=== PATIENT | male | born 1955 | race Caucasian/White ===

== ENCOUNTER 2024-09-22 02:19 | Day surgery (SDC) | payer MEDICARE, SELFPAY ==
--- NOTE | 2024-09-12 08:07 | P.HP_ITS ---
History of Present Illness History of Present Illness Consent: Risks, benefits, and alternatives have been discussed and questions answered. Patient agrees to proceed with procedure. Chief complaint: elevated psa Narrative: Arnaldo Metcalf is a 69 year old male This man has a chronic PSA elevation and has had no prior negative biopsies. He has not priviously undergone biopsy due to transient PSA elevation and he won't agree to biopsy. His urological histroy is not significant for recent urinary tract infection, recent prostatitis, hematuria or hematospermia. This man has never been on a 5-alpha reductase inhibitor. He has no family history of prostate cancer in his father or brothers. Note for Abnormal PSA: . 07/2024: ?PSA: 10.56 08/08/24: ?mpMRI Prostate: PI-RADS-5: 1.8cm right post.-lat. PZ @mid-gland ?Volume: 44gm Review of Systems Review of Systems: All systems reviewed & are unremarkable except as noted in HPI and below PMFSH Past Medical History Medical History (Updated 09/12/24 @ 08:07 by Eduardo Nelson MD) Asthma Allergies Exam Const: General: no acute distress Resp: Effort & Inspection: normal respiratory effort GI: Inspection: non-distended GI Palp: No abdominal tenderness and No Guarding due to palpation present (GI) Auscultation: normal bowel sounds Assessment and Plan Assessment and plan (1) Elevated PSA: Code(s): R97.20 - Elevated prostate specific antigen [PSA] Status: Acute Assessment and Plan: * MRI fusion biopsy prostate
[2024-09-15 10:55] VITALS: BMI 28.5
--- NOTE | 2024-09-15 11:15 | PC.NURSE ---
Report to the Outpatient Waiting Room, entrance under the green pavilion located off [facility], at time ___11:00AM__ on date __09/22/24___. Planned Procedure Time: ___1:00PM___.? Time changes happen often and if your time is changed the preop area will call you the afternoon before. - You and your visitor will be asked to self-screen and do not enter if you have any COVID symptoms. Please call surgeon if you need to reschedule. - A mask is optional within the hospital at this time. Patients may have clear liquids (water, carbonated beverages, clear teas, apple juice) until 3 hours prior to surgery (10:00AM) with a maximum of 20 ounces. - No food from midnight until time of surgery and no smoking, or chewing tobacco (or any form of nicotine). No chewing gum, candy or mints. Take only the following medications with a SIP of water on the morning of surgery: ____NONE DO NOT STOP ANY OF YOUR OTHER PRESCRIPTION MEDICATIONS PRIOR TO SURGERY EXCEPT THE FOLLOWING Hold all vitamins and supplements for 3 days per anesthesiologist. Medications to discontinue per physician NONE Date to take last dose Please no make-up, nail amharic, hairspray, perfume, deodorant, or body powder the day of surgery.? No jewelry (including any body piercings) or valuables the day of surgery, leave them at home.? Please take a shower or bath the night before, or the morning of, surgery with an antibacterial soap.? Wear comfortable, loose fitting clothing.? - Jewelry must be removed prior to entering the operating room.? Rings and piercings that are not removed may be cut off. - The hospital will not accept responsibility for valuables.? - Please leave all valuables, including medications, at home the day of surgery. If you are going home after surgery, a licensed jinriksha driver must drive you home.? - NO public transportation without another adult if you receive anesthesia. - We recommend that an adult stay with you for 24 hours following discharge. - We also recommend that you do not drive, make important decision, drink alcoholic beverages, or take any drugs that were not prescribed by your health care provider for at least 24 hours after your discharge time. Follow any additional instructions given to you from your surgeon. Telephone instructions given to ____PATIENT and asked if any additional questions and then verbalized understanding. Patient advised to call surgeon office or pre surgery nurse liaison [phone] if any additional questions.
--- OUTSIDE RECORDS SUMMARY | 2024-09-22 02:22 | XMS_ITS | Encounter Summary ---
Author Organization [facility] - [facility] Address [facility] [place] [address] Care Team Providers Care Medical Staff Assistant Name Role Phone Bonnie Darby DO Primary Care Provider [phone] Kenny Mcclain MD Unavailable Tk Lacey MD Unavailable [phone] Encounter Details Date Type Department Care Team (Late st Contact Info) Description 03/21/2024 [email or web address] Message Enc [facility] Medical Group Multispecialty Care - [place] [address] [place], [place] [id number] Bonnie Darby DO [address] [facility] [address] [place], [place] [id number] Sleep study Social History Tobacco Use Types Packs/Day Years Used Date Smoking Tobacco: Every Day Cigarettes 1 53.6 Started: 02/09/1971 Passive Smoke Exposure: Past Smokeless Tobacco: Never Comments:Quit for short umer ods of time in the past. 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 [facility] [address] [place] [address] Gloria Green, PT [address] [place] [address] 09/29/2024 9:15 AM CDT Office Visit [facility] [address] [facility] [address] [place] [address] Kenny Mcclain MD Three [facility]. [address] [place] [address] 10/04/2024 1:30 PM CDT Office Visit [facility] Physical Therapy [address] [address] Gloria Green, [place] [address] 11/04/2024 8:20 AM CDT Office Visit [facility] Medical [facility] Multispecialty Care - [facility] [address] [facility] [place] [id number] Tk Lacey MD [address] [facility] [address] [place] [address] 11/15/2024 1:00 PM CDT Hospital Encounter [facility] [address] [place] [address] Enrique Neumann MD [facility] [facility] [place], [place] [address] 11/15/2024 1:00 PM CDT - 11/15/2024 1:43 PM CDT Surgery [facility] [address] [place] [address] Enrique Neumann MD [address] [facility] [place], [place] [id number] COLONOSCOPY DIAGNOSTIC WITH/WITHOUT SPECIMEN BRUSH/WASH 11/17/2024 9:50 AM CDT Office Visit [facility] Family Medicine - [place] [address] [place] [address] Claudette Aguirre MD [address] [facility] [address] [place] [address] 08/25/2025 9:30 AM CDT Office Visit [facility] Multispecialty Care - [place] [address] [facility] [address] [place] [address] Bonnie Darby DO [address] [facility] [address] [place] [address] Scheduled Procedures Name Priority Associated Diagnoses Date/Ti me COLONOSCOPY DIAGNOSTIC WITH/WITHOUT SPECIMEN BRUSH/WASH Encounter for screening for malignant neoplasm of colon 11/15/2024 1:00 PM CDT documented as of this encounter Visit Diagnoses Not on filedocumented in this encounter Additional Health Concerns Assessment Noted Time PHQ-9 Depression Total Score: 1 03/07/19 25 10:36 AM LAMP SHADE MAKER documented as of this encounter Care Teams Medical Staff Assistant Relationship Specialty Start Date End Date Bonnie Darby DO [address] [facility] [address] [place] [address] PCP - General FAMILY PRACTICE 11/09/23 10/02/24 Kenny Mcclain MD [address] [place] [address] Referring Physician VASCULAR SURGERY 08/24/24 Tk Lacey MD [address] [address] Consulting Physician Internal Medicine Pulmonary Disease 08/24/24 documented as of this encounter
--- OUTSIDE RECORDS SUMMARY | 2024-09-22 02:22 | XMS_ITS | Encounter Summary ---
Author Organization [facility] Address [facility] [place] [address] Care Team Providers Care Head Cashier Name Role Phone Bonnie Darby DO Primary Care Provider [phone] Kenny Mcclain MD Unavailable Tk Lacey MD Unavailable [phone] Encounter Details Date Type Department Care Team (Late st Contact Info) Description 12/10/2023 GetSocial Message Enc [facility] Medical Group Multispecialty Care [facility] [address] 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 [place] [address] [place] [address] 09/29/2024 9:15 AM CDT Office Visit [facility] [place] [address] Kenny Mcclain MD [address] [facility]. [address] [place] [address] 10/04/2024 1:30 PM CDT Office Visit [facility] Physical Therapy [address] [address] Gloria Green, [place] [address] 11/04/2024 8:20 AM CDT Office Visit [facility] Medical Group Multispecialty Care - [facility] [address] [facility] [place] [id number] Tk Lacey MD [address] [facility] [address] [place] [address] 11/15/2024 1:00 PM CDT Hospital Encounter [facility] [address] [place] [address] Enrique Neumann MD [address] [place] [address], [address] [place] [address] 11/15/2024 1:00 PM CDT - 11/15/2024 1:43 PM CDT Surgery [facility] [address] [place] [address] Enrique Neumann MD [address] [facility], [address] [place] [address] COLONOSCOPY DIAGNOSTIC WITH/WITHOUT SPECIMEN BRUSH/WASH 11/17/2024 9:50 AM CDT Office Visit [facility] Medical Group Family Medicine - [place] [address] [facility] [address] [place] [address] Claudette Aguirre MD [address] [facility] [address] [place] [address] 08/25/2025 9:30 AM CDT Office Visit [facility] Multispecialty Care - [place] [address] [facility] [address] [place] [address] Bonnie Darby DO [address] [facility] [address] [place] [address] Scheduled Procedures Name Priority Associated Diagnoses Date/Ti me COLONOSCOPY DIAGNOSTIC WITH/WITHOUT SPECIMEN BRUSH/WASH Encounter for screening for malignant neoplasm of colon 11/15/2024 1:00 PM CDT documented as of this encounter Visit Diagnoses Not on filedocumented in this encounter Care Teams Head Cashier Relationship Specialty Start Date End Date Bonnie Darby DO [address] [facility] [address] [place] [address] PCP - General FAMILY PRACTICE 11/09/23 10/02/24 Kenny Mcclain MD [address] [place], [place] [id number] Referring Physician VASCULAR SURGERY 08/24/24 [place] [address] [place] [address] [address] [place] [address] Consulting Physician Internal Medicine Pulmonary Disease 08/24/24 documented as of this encounter
--- OUTSIDE RECORDS SUMMARY | 2024-09-22 02:22 | XMS_ITS | Clinical Summary ---
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 elevated PSA however elevated PSA likely secondary to chronic prostatitis which was treated. Assessment & Plan (12/29/2023 1:52 PM SUPERVISOR ELECTRONIC TESTING): Continue remaining of ciprofloxacin prescription. Follow-up as scheduled with urology. Assessment & Plan (12/15/2023 11:08 AM SUPERVISOR ELECTRONIC TESTING): Patient counseled to finish 28-day course of ciprofloxacin. Communicate with patient that I suspect chronic prostatitis is why his PSA is elevated however I would still like him to be evaluated by urology as PSA is elevated above 10. Assessment & Plan (12/01/2023 10:19 AM CDT): Patient recent and prescription for ciprofloxacin 500 mg oral twice daily for 28 days. Instructed to start taking. He is counseled on potential side effects and is agreeable to treatment. He is to call if he has any concerns. Intermittent asthma without complication, unspecified asthma severity (HHS/HCC) 11/10/2023 Encounters Date Type Department Care Team Description 09/20/2024 1:30 PM CDT Office Visit [facility] Physical [facility] [address] [facility] [address] [place] [address] Bonnie Darby, Cassy Clark, BOX BLANK MACHINE OPERATOR Cervical Pain 09/20/2024 Travel 09/13/2024 1:30 PM CDT Office Visit [facility] Physical [facility] [address] [facility] [address] [place] [address] Bonnie Darby, Cassy Clark, BOX BLANK MACHINE OPERATOR Cervical Pain 09/13/2024 Travel 09/12/2024 Prep for Procedure [facility] General Surgery [facility] [address] [facility], [address] [place] [phone] Enrique Neumann MD 09/08/2024 2:15 PM CDT Office Visit [address], [address] [place] [address] Enrique Neumann MD Consult For Colonoscopy (First one) 09/08/2024 9:00 AM CDT Allied Health/Nurse Visit [place] [address] [address] [address] [place] [address] Bonnie Darby DO Allied Health Visit (Pt here for BP check. ) 09/08/2024 Travel 09/06/2024 3:15 PM CDT Office Visit [facility] Physical [place] [id number] [address] Bonnie Darby, Gloria Caba, PT Cervical Pain 09/06/2024 Travel 08/25/2024 9:20 AM CDT Office [facility] [place] [address] [facility] [address] [place] [address] Bonnie Darby DO Hypertension (3 mo follow up /No questions or concerns today. /) 08/25/2024 Travel 08/24/2024 8:30 AM CDT [facility] [address] [place] [address] Bonnie Darby, DO Medicare Wellness (Patient presents today for their Medicare Annual Wellness Visit.) 08/24/2024 Travel 08/08/2024 MyChart Message [facility] [address] [place] [phone] Tk Lacey MD cpap setting at 13 07/22/2024 Scan [facility] Scanned, [facility] 07/21/2024 Scan [facility] Scanned, [facility] 07/20/2024 Scan [facility] Scanned, [facility] 07/20/2024 Telephone [facility] - [address] [place] [phone] Tk Lacey MD Results 07/20/2024 Results Follow-Up [facility] - [address] [place] [phone] Tk Lacey MD PSG with CPAP/BIPAP (32740) 07/07/2024 7:52 PM CDT - 07/07/2024 11:59 PM CDT Hospital Encounter [facility] [address] [place] [address] Tk Lacey MD Obstructive Sleep Apnea Discharge Disposition: Home or Self Care (Routine Discharge) 07/07/2024 Travel from Last 3 Months Immunizations Immunization Administration Dates Next Due Fluzone High Dose (IIV, trivalent, 0.5mL) 2023 Pneumococcal (Prevnar 20) 12/01/2023 Shingrix 03/20/2024,12/29/2023 Tdap (Adacel) 11/17/2023 Family History Medical History Relation Comments Lymphoma Brother 1 Stroke Brother 2 Hiatal hernia Brother 3 Aneurysm Father in 1996 from aortic aneurysm Mitral Valve Issue Father Emphysema Maternal Grandfather No Known Problems Maternal Grandmother Cancer Maternal Uncle Cholecystectomy Mother Diabetes Mother No Known Problems Paternal Grandfather No Known Problems Paternal Grandmother Sleep Apnea Sister Patient reports sister used CPAP for 2 years Relation Status Comments Brother 1 Brother 2 Alive Brother 3 Alive Father Maternal Grandfather Maternal Grandmother Maternal Uncle Mother Paternal Grandfather Paternal Grandmother Sister Social History Tobacco Use Types Packs/Day Years Used Date Smoking Tobacco: Every Day Cigarettes 1 53.6 Started: 02/09/1971 Passive Smoke Exposure: Current Smokeless Tobacco: Never Tobacco Cessation:Ready to Q uit: Yes; Counseling Given: Yes Comments:Currently 0.5 PPD Alcohol Use Standard Drinks/Week Comments Yes 6.7 (1 standard drin k = 0.6 oz pure alcohol) Drinks on vacation or playing golf AUDIT-C Answer Date Recorded Q1: How often do you have a drink containing alc ohol? 2-4 times a month 08/24/2024 Q2: How many drinks containi ng alcohol do you have on a typical day when you are drinking? 5 or 6 08/24/2024 Q3: How often do you have si x or more drinks on one occasion? Less than monthly 08/24/2024 PHQ-2 Answer Date Recorded Patient Health Questionnaire-2 Score 0 08/24/2024 Sex and Gender Information Value Date Recorded Sex Assigned at Male 04/04/2024 8:19 AM SUPERVISOR ELECTRONIC TESTING Legal Sex Male 2:39 PM CDT Gender Identity Male 04/04/2024 8:19 AM SUPERVISOR ELECTRONIC TESTING Sexual Orientation Not on file Last Filed Vital Signs Vital Sign Reading Time Taken Comments Blood Pressure 137/87 09/08/2024 2:25 PM CDT Pulse 71 09/08/2024 2:25 PM CDT Temperature 36.6 C (97.8 F) 09/08/2024 2:25 PM CDT Respiratory Rate 20 09/08/2024 2:25 PM CDT Oxygen Saturation 96% 09/08/2024 2:25 PM CDT Inhaled Oxygen Concentration - - Weight 93.6 kg (206 lb 6.4 oz) 09/08/2024 2:25 P M CDT Height 180.3 cm (5' 11) 09/08/2024 2:25 PM CDT Body Mass Index 28.79 09/08/2024 2:25 PM CDT Plan of Treatment Upcoming Encounters Date Type Department Care Team (Latest Contact Info) Description 09/27/2024 2:30 PM CDT Office Visit [facility] Physical Therapy [facility] [address] [address] Gloria Green, PT [facility] [place] [address] 09/29/2024 9:15 AM CDT [facility] [address] [place] [address] Kenny Mcclain MD [facility]. [address] [place] [address] 10/04/2024 1:30 PM CDT Office Visit [facility] Physical Therapy [facility] [address] [address] Gloria Green, PT [facility] [place] [address] 11/04/2024 8:20 AM CDT Office Visit [facility] Mult[facility]pecialty Care - [facility] [address] [place] [phone] Tk Lacey MD [address] [facility] [address] [place] [address] 11/15/2024 1:00 PM CDT Hospital Encounter [facility] [address] [place] [address] Enrique Neumann MD [address] [facility], [address] [place] [address] 11/15/2024 1:00 PM CDT - 11/15/2024 1:43 PM CDT Surgery [facility] [address] [place] [address] Enrique Neumann MD [address] [facility], [address] [place], [place] [address] COLONOSCOPY DIAGNOSTIC WITH/WITHOUT SPECIMEN BRUSH/WASH 11/17/2024 9:50 AM CDT Office Visit [facility] [place] [address] [place] [address] Claudette Aguirre MD [address] [place] [address] 08/25/2025 9:30 AM CDT Office Visit [facility] [place] [address] [place] [address] Bonnie Darby, [address] [place] [address] Scheduled Procedures Name Priority Associated Diagnoses Date/Ti me COLONOSCOPY DIAGNOSTIC WITH/WITHOUT SPECIMEN BRUSH/WASH Encounter for screening for malignant neoplasm of colon 11/15/2024 1:00 PM CDT Health Maintenance Due Date Last Done Comments Colorectal Cancer Screening FIT/FOBT (1 Year) 10/23/2024 10/24/2023 Lung Cancer Screening 12/07/2024 12/08/2023 COVID-19 Vaccine (2023-2 5 season) 2025 06/15/2021, 09/22/2020, 09/01/2020 Postponed from 10/11/2023 (Patient Refused) RSV Immunization or 60+ Years (1 - Risk 60-74 years 1-dose series) 03/21/2025 Postponed from 09/2015 (Going to Outside Clinic) Annual Medicare Wellness Visit 08/25/2025 08/24/2024 DTaP, Tdap and Td Vaccines ( 2 - Td or Tdap) 11/16/2033 11/17/2023 Hepatitis C Completed 11/13/2023 Pneumococcal Vaccine: 50+ Years Completed 12/01/2023 AAA SCREENING Completed 12/08/2023 Zoster Vaccines Completed 03/20/2024, 12/29/2023 PHQ-2 (Physician [place]) Completed 08/24/2024 Meningococcal B Vaccine Aged Out No l onger eligible based on patient's age to complete this topic Meningococcal Vaccine Aged Out No gina froy eligible based on patient's age to complete this topic RSV Immunizations Under 20 Months Aged Out No longer eligible b ased on patient's age to complete this topic Goals Goal Patient Goal Type Associated Problems Recent Progress Patient-Stated? Author Autogenerat ed Goal Care Plan Autogenerated Problem No Haritha Barker, photostatic copy maker Procedure Name Priority Date/Time Associated Diagnosis Comments POLYSOMNOGRAPHY 4 OR MORE PARAMETERS WITH CPAP Routine 07/07/2024 8:15 PM CDT Obstructive sleep apnea (adult) (pediatric) USV AAA SCREENING Routine 12/08/2023 8:5 8 AM CDT Nicotine dependence, cigarettes, with other nicotine-induced disorders Screening for AAA (abdominal aortic aneurysm) CT LUNG SCREENING Routine 12/08/2023 7:3 4 AM CDT Nicotine dependence, cigarettes, with other nicotine-induced disorders Screening for lung cancer HEPATITIS C ANTIBODY Routine 11/13/2023 11:03 AM CDT Encounter for hepatitis C screening test for low risk patient FECAL BLOOD OCCULT (SCAN ORDER) Routine 10/24/2023 from Last 3 Months or Most Recently Relevant to Health Maintenance Results * PSG with CPAP/BIPAP (28489) (07/07/2024 8:15 PM CDT) Narrative [facility] - 07/07/2024 8:15 PM CDT Bird Amor MD 07/20/2024 2:37 PM [place], [place] CPAP/BILEVEL TITRATION STUDY INTERPRETATION PATIENT NAME: Ashvin Sam DATE OF : 1955 DATE OF SERVICE: 07/07/2024 PATIENT TYPE: CLI Ordering Phy Exam Description Tk Lacey M.D. PSG 4+PARAMETERS W/CPAP ATTENDING PHYSICIAN: Bird Amor M.D. REFERRING PHYSICIAN: Tk Lacey M.D. GENERAL INFORMATION Total Sleep Time: 194.5 minutes Sleep Efficiency Index: 42.1% Sleep Latency: 45.8 minutes REM Latency: 257.0 minutes Post Respiratory Disturbance Index: 9.7 per hour on CPAP of 13 cm h2O Post Apnea-Hypopnea Index: 0.0 per hour on CPAP of 13 cm h2O Procedure: The overnight polysomnogram was an attended study using a multiple channel system including simultaneous monitoring and recording of electroencephalography (EEG), right and left electrooculography (EOC), submental electromyography (EOG), submental electromyography (EMG), EKG, oral/nasal airflow, snoring, respiratory effort, oxygen saturations, right and left anterior tibialis electromyography, and body position. Sleep Architecture: The patient underwent CPAP titration and slept for a total of 194.5 minutes during 461.9 minutes of recording time. Latency to persistent sleep was 45.8 minutes with sleep efficiency of 42.1% and a REM latency of 257.0 minutes. Patient spent 24.2% (47.0 minutes) in stage N1, 54.5% (106.0 minutes) in stage N2, 6.7% (13.0 minutes) in Stage N3, 14.7% (28.5 minutes) in REM. The patient slept 0.3% of the time in supine position, 0.0% of the time in prone position, 37.8% of the time in left-sided position, and 62.0% of the time in right-sided position. There were 180 arousals, of which 128 were associated with respiratory events and 35 were spontaneous. Arousal index was 55.5 per hour. Limb Activity Summary: The patient demonstrated a total of 94 leg movements during the night, of which 94 had the appearance of periodic limb movements. There were a total of 17 arousals associated with leg movements for an arousal index with leg movements of 5.2 per hour. The periodic limb movement index was 29.0 per hour. Cardiac Events Summary: The average heart rate was 71.3 beats per minute. PVCs were noted during this study. Respiratory Events Summary: There were a total of 20 apneas and hypopneas, of which 14 were apneas. Of those apneas, 6 were Obstructive, 5 were Central and 3 were Mixed. There were an additional 114 respiratory event-related arousals. Oxygen Saturation Summary: Patient's average saturation was 95.2% during REM and 94.4% during NREM. The patient's lowest saturation was 93.0% during REM and 89.0% during NREM. Saturation was 90% or higher for 99.9% of the total sleep time. Saturation was less than 88% for 0.0% of the total sleep time or 0.0 minutes. CPAP/BiLevel Therapy Summary: The patient underwent CPAP titration starting at 4 cm H2O, up to a maximum of 13 cm H2O. The patient slept for 31.0 minutes while on the optimal pressure of 13 cm H2O with an AHI of 0.0 per hour, arousal index of 42.6 per hour and minimum oxygen saturation of 93.0%. Assessment/Plan: This patient was fully titrated during this study. There was decreased sleep time during this evaluation. It is recommended that this patient initiate CPAP therapy at home set at 13.0 cm h2O with heated humidity. A one month follow up should be scheduled with the ordering physician to assess the benefit and tolerance of this therapy. If respiratory events persist, further evaluation and possible pressure adjustment may be warranted as clinically indicated. The patient used a VitaSensis Simplus full-face mask, size medium, during this study. This patient had an elevated periodic limb movement index which could be a potential source of sleep disruption. PVCs were noted during this study. Given that the patient's past medical history was not available during interpretation of this study, clinical correlation of this issue may be indicated based upon this patient's underlying medical conditions. I recommend consistent correction of sleep-disordered breathing and if signs of an elevated periodic limb movement index persist, treatment may be required as clinically indicated. This patient should maintain good sleep hygiene techniques, maintain a consistent sleep/wake schedule with adequate hours of sleep, and avoid hazardous activities when sleepy. The patient should be cautioned about factors that may potentially exacerbate snoring and sleep-related problems, such as OPENER depressants, especially at bedtime. This document was electronically signed by: Bird Amor M.D. on 07/18/2024 at 7:57 AM. Tk Lacey MD SLEEP CENTER ORDERABLES Final Result [facility] [address] [place] [address], * USV AAA SCREENING (12/08/2023 8:58 AM CDT) Anatomical Region Laterality Modality NA Vascular Ultraso und 12/08/2023 7:34 AM CDT Narrative 12/08/2023 6:08 PM CDT [facility] ILIAC [facility]UPLEX [facility] Pat.Name: JUNIORALFREDOASHVIN Pat.ID: [id number] .Date: 12/08/2023 Exam Time: 7:34:00 AM Study Type:KEVIN VS Aorta IVC Iliac Duplex Uni Age: 13 1955,68Y Sex: M Sonogrphr: Tawny Mustafa RVT Pat. Stat.:Outpatient History / Clinical:AAA screening , CLAUDICATION R >L PMH, SMOKER, HTN, HLD, CKD, NO PRIOR Procedures: Ferris scale, Color Doppler imaging, Doppler Spectral Analysis Race: W ++++++++++++++++++++++++++++++++++++ SUMMARY: ++++++++++++++++++++++++++++++++++++ AAA SCREENING EXAM: Maximum aorta diameter is 2.4 cm. Mild plaque is noted. The common iliacs are within normal limits. CONCLUSION: No abdominal aorta aneurysm present. Recommend follow up prn unless clinically indicated. ++++++++++++++++++++++++++++++++++++ MEASUREMENTS: ++++++++++++++++++++++++++++++++++++ DOPPLER Supra AO Supra AO Dim 1 2.4 cm Supra AO Dim 2 2 cm Dist AO Dist AO Dim 1 1.52 cm Dist AO Dim 2 1.58 cm Rt Prox Common Iliac Common Iliac Di 1.1 cm Common Iliac Di 0.98 cm Lt Prox Common Iliac Common Iliac Di 1.1 cm Common Iliac Di 1.1 cm <Electronic Signature> 12/08/2023 06:08 PM Kenny Mcclain M.D. Procedure Note Kenny Mcclain MD - 12/08/2023 [facility] ILIAC DUPLEX [facility] Pat.Name: ASHVIN SAM Pat.ID: [id number] .Date: 12/08/2023 Exam Time: 7:34:00 AM Study Type:KEVIN VS Aorta IVC Iliac Duplex Uni Age: 13 1955,68Y Sex: M Sonogrphr: Tawny Mustafa RVT Pat. Stat.:Outpatient History / Clinical:AAA screening , CLAUDICATION R >L PMH, SMOKER, HTN, HLD, CKD, NO PRIOR Procedures: Ferris scale, Color Doppler imaging, Doppler Spectral Analysis Race: W ++++++++++++++++++++++++++++++++++++ SUMMARY: ++++++++++++++++++++++++++++++++++++ AAA SCREENING EXAM: Maximum aorta diameter is 2.4 cm. Mild plaque is noted. The common iliacs are within normal limits. CONCLUSION: No abdominal aorta aneurysm present. Recommend follow up prn unless clinically indicated. ++++++++++++++++++++++++++++++++++++ MEASUREMENTS: ++++++++++++++++++++++++++++++++++++ DOPPLER Supra AO Supra AO Dim 1 2.4 cm Supra AO Dim 2 2 cm Dist AO Dist AO Dim 1 1.52 cm Dist AO Dim 2 1.58 cm Rt Prox Common Iliac Common Iliac Di 1.1 cm Common Iliac Di 0.98 cm Lt Prox Common Iliac Common Iliac Di 1.1 cm Common Iliac Di 1.1 cm <Electronic Signature> 12/08/2023 06:08 PM Kenny Mcclain M.D. us Bonnie Darby DO US [facility] Final Result * CT LUNG SCREENING (12/08/2023 7:34 AM CDT) Anatomical Region Laterality Modality Chest Computed Tomogra phy 12/08/2023 9:47 AM CDT Impressions 12/08/2023 9:50 AM CDT IMPRESSION: 1. LUNG-RADS category 2: Benign appearance or behavior-nodules with a very low likelihood of becoming a clinically active cancer due to size or lack of growth. 2. LUNG-RADS category S: Negative, no new/unknown potentially significant incidental findings requiring urgent additional evaluation. 3. Other incidental findings as above. RECOMMENDATIONS: Follow-up LDCT Chest in 12 months (on or around 12/07/2024). Ordered By: BONNIE DARBY Interpreted By: Michael Moncada, 12/08/2023 9:47 AM Narrative 12/08/2023 9:50 AM CDT [address] [address] EXAM: LUNG SCREENING LOW-DOSE CT THORAX WITHOUT CONTRAST DATE: 12/08/2023 7:25 AM HISTORY: Asymptomatic patient meeting NCCN high-risk criteria for lung screening. COMPARISON: None TECHNIQUE: Noncontrast, helical, low-dose CT (LDCT) chest per standard departmental protocol. A dose lowering technique was used for this procedure, which may include, but is not limited to, dose reduction technique, automated exposure control, iterative reconstruction, ALARA (As Low As Reasonably Achievable), or Image Gently techniques. FINDINGS: Lung Screening Specific (LUNG-RADS): 2.3 mm right upper lobe nodule axial image 41. Baseline. LungRADS 2. Potentially Significant Incidentals (LUNG-RADS category S): None. Pulmonary Incidentals: Calcified granulomas indicate healed granulomatous disease. Mild upper lobe predominant centrilobular emphysema. Other Incidentals: Atherosclerosis, coronary calcifications. Scattered degenerative disc disease and facet arthropathy. Procedure Note Michael Moncada MD - 12/08/2023 [facility] [address] [place], [place] [address] EXAM: LUNG SCREENING LOW-DOSE CT THORAX WITHOUT CONTRAST DATE: 12/08/2023 7:25 AM HISTORY: Asymptomatic patient meeting NCCN high-risk criteria for lungscreening. COMPARISON: None TECHNIQUE: Noncontrast, helical, low-dose CT (LDCT) chest per standarddepartmental protocol. A dose lowering technique was used for this procedure, which may include,but is not limited to, dose reduction technique, automated exposurecontrol, iterative reconstruction, ALARA (As Low As ReasonablyAchievable), or Image Gently techniques. FINDINGS: Lung Screening Specific (LUNG-RADS): 2.3 mm right upper lobe nodule axial image 41. Baseline. LungRADS 2. Potentially Significant Incidentals (LUNG-RADS category S): None. Pulmonary Incidentals: Calcified granulomas indicate healed granulomatousdisease. Mild upper lobe predominant centrilobular emphysema. Other Incidentals: Atherosclerosis, coronary calcifications. Scattereddegenerative disc disease and facet arthropathy. IMPRESSION: 1. LUNG-RADS category 2: Benign appearance or behavior-nodules with a verylow likelihood of becoming a clinically active cancer due to size or lackof growth. 2. LUNG-RADS category S: Negative, no new/unknown potentially significantincidental findings requiring urgent additional evaluation. 3. Other incidental findings as above. RECOMMENDATIONS: Follow-up LDCT Chest in 12 months (on or [id number]/2024). Ordered By: BONNIE DARBY Interpreted By: Michael Moncada, 12/08/2023 9:47 AM Bonnie Darby DO CT Final Result * HEPATITIS C ANTIBODY (11/13/2023 11:03 AM CDT) HEPATITIS C AB NON-REACTI VE NON-REACT MAURICE 11/13/2023 7:45 PM CDT [facility] Comment: ANTIBODIES TO HCV NOT DETECTED. DOES NOT EXCLUDE THE POSSIBILITY OF EXPOSURE TO HCV. 11/13/2023 11:0 3 AM CDT Bonnie Darby DO LABORATORY Final Result Performing Organization Address City/[facility]/ZIP Co de Phone Number [facility] [address] [place] [address], [place] [phone] * FECAL BLOOD OCCULT (10/24/2023) Pathologist [facility] FECAL OCCULT BLOOD NEGATIVE [facility] 10/24/2023 us Doc [facility] Scanned SCANNING Final Resu lt Performing Organization Address [facility] Co de Phone Number [facility] from Last 3 Months or Most Recently Relevant to Health Maintenance Additional Health Concerns Active Problems Noted Date Diagnosed Date Autogenerated Problem 09/12/[address] [place] [address] [place] [phone] [facility] Advance Directives Documents on File Type Date Recorded Patient Prize Coordinator Expl anation Advance Directives and Livin g Will 11/13/2023 2:46 PM POA Care Teams Spot Facer Relationship Specialty [place] [address] [place] [address] [address] [place] [address] PCP - General FAMILY PRACTICE 11/09/23 10/02/24 Kenny Mcclain MD [place] [place] [address] Referring Physician VASCULAR SURGERY 08/24/24 Tk Lacey MD [address] [facility] [address] [place] [address] Consulting Physician Internal Medicine Pulmonary Disease 08/24/24
--- NOTE | 2024-09-22 06:24 | WPDHPUPDATE1 ---
History and Physical Update Update Date/Time: 09/22/24 06:24 History and Physical has been reviewed, including an updated exam of the patient. There are NO changes in the patient's condition. Risks, benefits, and alternatives have been discussed and questions answered. Patient agrees to proceed with procedure.
--- NOTE | 2024-09-22 07:30 | WPDANESEPPF ---
Anes - Initial Pre Proc Eval Procedure: Operation Date: 09/22/24 13:00 Proposed Procedures p Transrectal Ultrasound Fusion Guided Prostate Biopsy - Eduardo Nelson MD Date/Time: 09/22/24 07:30 Surgeon: Eduardo Nelson MD Pre Op Diagnosis: elevated psa Patient Data Age: 69 Gender: M Height: 1.8 m Weight: 93 kg Allergies Allergy/AdvReac Type Severity Reaction Status Date / Time No Known Allergies Allergy Verified 09/22/24 11:41 Home Medications ?Medication ?Instructions ?Recorded ?Confirmed ?Type acetaminophen 500 mg tablet 1,000 mg PO Q6H PRN pain 09/15/24 09/15/24 History (Acetaminophen Pain Relief) ephedrine HCl 12.5 mg tablet 12.5 mg PO BID PRN shortness of 09/15/24 09/15/24 History (Primatene) breath or wheezing olmesartan 20 mg tablet 20 mg PO QAM 09/15/24 09/22/24 History rosuvastatin 40 mg tablet 40 mg PO DAILY 09/15/24 09/15/24 History Patient hx anesthesia problems: none Family hx anesthesia problems: none Results Review: All pre-operative results and documents have been reviewed as part of the pre-operative evaluation. [facility] Past Medical History Medical History (Updated 09/22/24 @ 07:30 by Rakesh Reddy DO) VANITA (obstructive sleep apnea) Hyperlipidemia Hypertension Asthma Allergies Social History Social History Smoking packs per day: 1 Smoking cigarettes per day: 20.0 Years smoked: 50 Smoking pack-years: 50.00 Smoking status: Current every day smoker Tobacco type: cigarettes Additional smoking assessment comments: SMOKING ~ 1/2 PACK/DAY CURRENTLY Alcohol intake: current Drinks per week: 6 Living arrangements: with roommate(s) Additional living arrangements comments: FRIEND Spiritual care concerns: No Anes - Eval Final PreProcedure Day of Procedure 09/22/24 07:30 Patient weight: overweight Heart: regular rate and rhythm Lungs: clear to auscultation Airway: Mallampati scale class II Neurological: alert and oriented Last oral intake: >/= 8 hours ASA classification: III Emergent: no Anesthetic plan: proceed Anesthesia type and monitoring: general LMA and standard monitoring Results Review: All pre-operative results and documents have been reviewed as part of the pre-operative evaluation. Informed Consent: The patient's anesthetic plan and its attendant risks and benefits were discussed with the patient/family/POA. Questions were solicited and answers provided to the satisfaction of the patient/family/POA.
[2024-09-22 11:30] VITALS: BP 133/78; PULSE 76; RESP 16; TEMP 36.6; O2SAT 98
[2024-09-22] MEDS: LACTATED RINGERS 1,000 ML 30 ML IV CONT (11:30)
[2024-09-22] MEDS: cefTRIAXone 1 GM in SODIUM CHLORIDE 0.9% IV 50 ML 100 ML IVPB (12:40)
--- NOTE | 2024-09-22 12:46 | S_PTH ---
PATIENT: Arnaldo Metcalf LOC: [facility] U#:[id number] AGE/SX: 69/M ROOM: RE09/22/[address]: Eduardo Nelson MD : 1955 BED: DIS: 09/22/2024 SPEC #: [id number] RECD: 09/22/24 14:20 STATUS: PAZ RE #: [id number] PRISCILA: 09/22/24 12:[address]: Eduardo Nelson DEPT: [facility] Surgical RECD BY: Sandra Trevino ENTERED: 09/22/24 14:21 SP TYPE: Surgical OTHR DR: Irene WaltonMD Tissues: A - Prostate Bx B - Prostate Bx C - Prostate Bx D - Prostate Bx E - Prostate Bx F - Prostate Bx G - Prostate Bx H - Prostate Bx I - Prostate Bx J - Prostate Bx K - Prostate Bx L - Prostate Bx M - Prostate Bx Procedures: Unstained Slides Hematoxylin and Eosin Stain Prostate Biopsy PIN 4 Prostate Triple Stain
[2024-09-22 13:00] VITALS: BP 110/67; PULSE 80; RESP 16; O2SAT 96
[2024-09-22 13:30] VITALS: BP 145/75; PULSE 56
--- NOTE | 2024-09-22 13:53 | W.PM.PROC2 ---
Procedure Note - Detailed Date of Procedure 09/22/24 Pre-op Diagnosis elevated psa Post-op Diagnosis Same Procedure Performed Uronav prostate bx. Surgeon Eduardo Nelson MD Anesthesia MAC Description of Procedure Patient is brought to the operative suite where he is positioned in the left lateral position. Systemic sedation is administered per the anesthesia department. Surgical time-out is undertaken and it's verified the patient has received preoperative antibiotics. Transrectal ultrasonography is undertaken with a standard transrectal probe. The [employer] system is used to superimpose his previously obtained mpMRI prostate images on the real-time transrectal ultrasond images. Prostate volume is calculated at 33cc. On the previous mpMRI there are one region of interest. Using the transrectal needle design for prostate biopsies 3 cores from each region of interest her obtain. We then proceeded with a standard 12 core prostate biopsy. Transrectal probe was removed and patient taken to recovery room having tolerated the procedure well. Blood loss was less than 10 cc.
[2024-09-22 13:55] VITALS: BP 160/77; PULSE 59
== END 2024-09-22 14:02 | disposition home or self-care (01) ==
PROVIDERS: PCP Family Medicine; Visit Provider Urology
PROC: (CPT 76872; principal; 2024-09-22 13:00)
DX: C61 Malignant neoplasm of prostate (principal); R97.20 Elevated prostate specific antigen [PSA]; J45.909 Unspecified asthma, uncomplicated; E78.5 Hyperlipidemia, unspecified; I10 Essential (primary) hypertension; G47.33 Obstructive sleep apnea (adult) (pediatric); F17.210 Nicotine dependence, cigarettes, uncomplicated
CPT/HCPCS: 76872; 55700; 88344; G0416; J0696; J3010; J7120

== ENCOUNTER 2024-10-18 07:32 | Outpatient (CLI) | payer MEDICARE, SELFPAY ==
--- NOTE | ~2024-10-18 | PE_ITS ---
EXAMINATION: PET_PETPSMAST_PT DATE: 10/18/2024 09:54 INDICATION: Prostate cancer TECHNIQUE: 5.619 mCi of Illucix Ga-68([id number]) was administered i.v. Low dose computed tomography (CT) images were acquired from the base of the brain to the base of the brain to the proximal thighs for attenuation correction and anatomic localization. Positron emission tomography (PET) images were acquired in the same distribution beginning 72 minutes after injection. Images including fused PET/CT images were reconstructed in axial, coronal, and sagittal planes. Automated exposure control technique was employed. The dose-length product was 1202.66mGy-cm. COMPARISON: None FINDINGS: Head/neck: Typical pattern of symmetric physiologic increased activity in the lacrimal, parotid and submandibular glands as well as along the mucosa of the nasal and oral cavities, pharynx and hypopharynx. No pathologically enlarged cervical lymphadenopathy or suspicious foci of increased uptake in the visualized head or neck. Chest: Dependent atelectasis in both lungs. Small calcified subpleural nodule in the right lower lobe consistent with old granulomatous disease. No other suspicious pulmonary nodules, pneumonia, pulmonary edema or pleural effusion. Heart size is normal. Atherosclerotic coronary artery calcific location. No pericardial effusion. Thoracic aorta is normal in caliber. No pathologically enlarged or PSMA avid thoracic lymphadenopathy. Abdomen/pelvis/proximal thighs: Physiologic renal accumulation and excretion of activity in the kidneys, bladder and along portions of ureters. 3-4 mm nonobstructing stone at the lower pole calyx of the left kidney. Prostatomegaly measuring 5.0 x 4.0 cm with approximately 1.5 cm focus of increased uptake at the right posterior aspect of the prostate with maximal SUV of 19.2. Normal degree and slightly heterogenous pattern of increased uptake throughout the liver and spleen without radiologic correlate or dominant PSMA avid lesion. There are a few low-attenuation hepatic cysts the largest measuring 1.3 cm. The gallbladder, pancreas and bilateral adrenal glands are normal. Moderate uptake scattered throughout the bowels with typical duodenal and proximal jejunal predominance and without radiologic correlate, also likely physiologic. A loop of nonobstructed small bowel extends into a large left inguinal hernia. Small fat-containing right inguinal hernia. Moderate diverticulosis along the descending and sigmoid colon without adjacent inflammatory stranding to suggest diverticulitis. No other abnormal foci of increased uptake or pathologically enlarged lymphadenopathy in the abdomen, pelvis or proximal thighs. Musculoskeletal: No suspicious lytic, blastic or abnormally PSMA avid bone lesions. IMPRESSION: 1. Possible 1.5 similar region of increased activity at the right posterior aspect of the enlarged prostate consistent with primary prostate cancer. No evident metastatic disease. 2. Loop of nonobstructed small bowel extends into a large left inguinal hernia. 3. Nonobstructing nephrolithiasis. Reviewed, dictated and finalized at location A. IMPRESSION: 1. Possible 1.5 similar region of increased activity at the right posterior asp ect of the enlarged prostate consistent with primary prostate cancer. No eviden t metastatic disease. 2. Loop of nonobstructed small bowel extends into a large left inguinal hernia. 3. Nonobstructing nephrolithiasis.
--- OUTSIDE RECORDS SUMMARY | 2024-10-18 07:56 | XMS_ITS | Encounter Summary ---
Author Organization [facility] - [facility] System Address [facility] [place] [address] Care Team Providers Care Web Database Developer Name Role Phone Bonnie Darby DO Primary Care Provider [phone] Claudette Aguirre MD Primary Care Provider + Kenny Mcclain MD Unavailable Tk Lacey MD Unavailable Encounter Details Date Type Department Care Team (Late st Contact Info) Description 12/10/2023 [place] [employer] Message Enc [facility] Medical Group Multispecialty Care - [address] [place], [place] [id number] [employer], [facility] Provider test results Social History Tobacco Use Types Packs/Day Years Used Date Smoking Tobacco: Every Day Cigarettes 1 53.7 Started: 02/09/1971 Passive Smoke Exposure: Past Smokeless [...] Sex Assigned at Male 04/04/2024 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 [place] [address] Bonnie Darby, [address] [place] [address] Cassy Zamudio, DOMINIQUE 11/04/2024 8:20 AM CDT Office Visit [facility] Multispecialty Care - [facility] [address] [facility] [place] [address] Tk Lacey MD [address] [facility] [address] [place] [address] 11/15/2024 12:00 PM CDT Hospital Encounter [facility] Surgery [address] [place] [address] Enrique Neumann MD [address] [place] [address], [address] [place], [place] [id number] 11/15/2024 12:00 PM CDT - 11/15/2024 12:43 PM CDT Surgery [address] [address] Enrique Neumann MD [address] [place] [address], [address] [place], [place] [address] COLONOSCOPY DIAGNOSTIC WITH/WITHOUT SPECIMEN BRUSH/WASH 11/17/2024 9:50 AM CDT Office Visit [facility] Medical Group Family Medicine - [place] [address] [place] [address] Claudette Aguirre MD [address] [place] [address] 06/29/2025 9:30 AM CDT Office Visit [facility] THREE [facility], [facility] [address] [place] [address] Kenny Mcclain MD Three [facility]. [facility] [address] [place] [address] 08/25/2025 9:30 AM CDT Office Visit [facility] Medical Group Multispecialty Care - [facility] [address] [facility] [address] [place] [address] Bonnie Darby DO [address] [facility] [address] [place] [address] Scheduled Procedures Name Priority Associated Diagnoses Date/Ti me COLONOSCOPY DIAGNOSTIC WITH/WITHOUT SPECIMEN BRUSH/WASH Encounter for screening for malignant neoplasm of colon 11/15/2024 12:00 PM CDT documented as of this encounter Visit Diagnoses Not on filedocumented in this encounter Care Teams Web Database Developer Relationship Specialty Start Date End Date Bonnie Darby DO [address] [facility] [address], [address] [place] [address] PCP - General FAMILY PRACTICE 11/09/23 10/02/24 Claudette Aguirre MD [address] [address] PCP - General FAMILY PRACTICE 10/03/24 Kenny Mcclain MD Three [facility]. [facility] [address] [place] [address] Referring Physician VASCULAR SURGERY 08/24/24 Tk Lacey MD [address] [facility] [address] [place] [address] Consulting Physician Internal Medicine Pulmonary Disease 08/24/24 documented as of this encounter
--- OUTSIDE RECORDS SUMMARY | 2024-10-18 07:56 | XMS_ITS | Encounter Summary ---
Author Organization [facility] Address [facility] [place] [address] Care Team Providers Care Assistant Media Planner Name Role Phone Bonnie Darby DO Primary Care Provider [phone] Claudette Aguirre MD Primary Care Provider + Kenny Mcclain MD Unavailable Tk Lacey MD Unavailable [phone] Reason for Referral * Surgical (Routine) - Authorized Specialty Diagnoses / Procedures Referred By Abdullahi ponce Referred To Contact Diagnoses Encounter for screening for malignant neoplasm of colon Procedures Case request operating room: COLONOSCOPY DIAGNOSTIC WITH/WITHOUT SPECIMEN BRUSH/WASH Enrique Neumann MD [address] [place] [address], [address] [place] [address] Phone: tel: fax: [place] [address] [place] [address] Phone: tel: Referral ID Status Reason Start Date Expiration Date V isits Requested Visits Authorized [id number] Authorized 09/12/2024 09/12/2025 1 1 Encounter Details Date Type Department Care Team (Late st Contact Info) Description 09/12/2024 Prep for Procedure [facility] Medical Group General Surgery - [place] [address] [facility], [address] [place] [address] Enrique Neumann MD [address] [place] [address], [address] [place], [place] [address] Social History Tobacco Use Types Packs/Day Years Used Date Smoking Tobacco: Every Day Cigarettes 1 53.7 Started: 02/09/1971 Passive Smoke Exposure: Current Smokeless Tobacco: Never Comments:Currently 0.5 PPD Alcohol Use Standard Drinks/Week [...] Sex Assigned at Male 04/04/2024 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 [facility] [address] [place] [address] Bonnie Darby, [address] [facility] [address] [place] [address] Cassy Zaumdio PTA 11/04/2024 8:20 AM CDT Office Visit [facility] Medical Group Multispecialty Care - [facility] [address] [facility], [address] [place] [address] Tk Lacey MD 3 [facility] [address] [place] [address] 11/15/2024 12:00 PM CDT Hospital Encounter [facility] [address] [place] [address] Enrique Neumann MD [facility] [facility], [address] [place], [place] [address] 11/15/2024 12:00 PM CDT - 11/15/2024 12:43 PM CDT Surgery [facility] [address] [place] [address] Enrique Neumann MD [address] [place] [address], [address] [place] [address] COLONOSCOPY DIAGNOSTIC WITH/WITHOUT SPECIMEN BRUSH/WASH 11/17/2024 9:50 AM CDT Office Visit [facility] Medical Group Family Medicine - [place] [address] [place] [address] Claudette Aguirre MD [address] [place] [address] 06/29/2025 9:30 AM CDT Office Visit [facility], [facility] [address] [place], [place] [address] Kenny Mcclain MD [facility]. [facility] [address] [place] [address] 08/25/2025 9:30 AM CDT Office Visit [facility] Medical Group Multispecialty Care - [place] [address] [place] [address] Bonnie Darby DO [address] [place] [address] Scheduled Orders Name Type Priority Associated Diagnoses Orde r Schedule Case request operating room: COLONOSCOPY DIAGNOSTIC WITH/WITHOUT SPECIMEN BRUSH/WASH Case Request Routine Encounter for screening for malignant neoplasm of colon Once for 1 Occurrences starting 11/15/2024 until 11/15/2024 Scheduled Procedures Name Priority Associated Diagnoses Date/Ti me COLONOSCOPY DIAGNOSTIC WITH/WITHOUT SPECIMEN BRUSH/WASH Encounter for screening for malignant neoplasm of colon 11/15/2024 12:00 PM CDT documented as of this encounter Goals Goal Patient Goal Type Associated Problems Recent Progress Patient-Stated? Author Autogenerat ed Goal Care Plan Autogenerated Problem No Haritha Barker, RN documented as of this encounter Visit Diagnoses Diagnosis Encounter for screening for malignant neoplasm of colon- Primary Special screening for malignant neoplasms, colon Encounter for screening for malignant neoplasm of colon Special screening for malignant neoplasms, colon documented in this encounter Additional Health Concerns Active Problems Noted Date Diagnosed Date Autogenerated Problem 09/12/2024 Assessment Noted Time PHQ-9 Depression Total Score: 1 03/07/19 25 10:36 AM SLEEPING BAG FILLER documented as of this encounter Care Teams Assistant Media Planner Relationship Specialty Start Date End Date Bonnie Darby DO [address] [facility] [address] [place] [address] PCP - General FAMILY PRACTICE 11/09/23 10/02/24 Claudette Aguirre MD [address] [facility] [address] [place] [address] PCP - General FAMILY PRACTICE 10/03/24 Kenny Mcclain MD [facility] [address] [place] [address] Referring Physician VASCULAR SURGERY 08/24/24 Tk Lacey MD [address] [facility] [address] [place] [address] Consulting Physician Internal Medicine Pulmonary Disease 08/24/24 documented as of this encounter
--- OUTSIDE RECORDS SUMMARY | 2024-10-18 07:56 | XMS_ITS | Encounter Summary ---
Author Organization [facility] Address [facility] [place] [address] Care Team Providers Care Transport Manager Name Role Phone Bonnie Darby DO Primary Care Provider [phone] Claudette Aguirre MD Primary Care Provider + Kenny Mcclain MD Unavailable Tk Lacey MD Unavailable [phone] Encounter Details Date Type Department Care Team (Late st Contact Info) Description 03/21/2024 MyChart Message Enc [facility] Medical Group Multispecialty Care - [place] [address] [place] [address] Bonnie Darby DO [address] [place], [place] [id number] Sleep study Social History Tobacco Use Types [...] Sex Assigned at Male 04/04/2024 8:19 AM DIGITAL MARKETING ASSISTANT Legal Sex Male 2:39 PM CDT Gender Identity Male 04/04/2024 8:19 AM DIGITAL MARKETING ASSISTANT Sexual Orientation Not on file documented as of this encounter Plan of Treatment Upcoming Encounters Date Type Department Care Team (Latest Contact Info) Description 10/18/2024 1:30 PM CDT Office Visit [facility] Physical Therapy [address] [place] [address] Bonnie Darby, DO [address] [place] [address] Cassy Zamudio S, DOMINIQUE 11/04/2024 8:20 AM CDT Office Visit [facility] Multispecialty Care - [facility] [address] [facility], [address] [place] [address] Tk Lacey MD 3 [facility] [address] [place] [address] 11/15/2024 12:00 PM CDT Hospital Encounter [facility] Surgery [address] [place] [address] Enrique Neumann MD [address] [place] [address], [address] [place], [place] [address] 11/15/2024 12:00 PM CDT - 11/15/2024 12:43 PM CDT Surgery [facility] Surgery [address] [place] [address] Enrique Neumann MD [address] [place] [address], [address] [place], [place] [id number] COLONOSCOPY DIAGNOSTIC WITH/WITHOUT SPECIMEN BRUSH/WASH 11/17/2024 9:50 AM CDT Office Visit [facility] Medical Group Family Medicine - [place] [address] [facility] [address] [place] [address] Claudette Aguirre MD [address] [place] [address] 06/29/2025 9:30 AM CDT Office Visit [facility] THREE [facility], [address] [place] [address] Kenny Mcclain MD Three [facility]. [place] [address] [place] [address] 08/25/2025 9:30 AM CDT Office Visit [facility] Medical Group Multispecialty Care - [place] [address] [facility] [address] [place] [address] Bonnie Darby DO [address] [facility] [address] [place] [address] Scheduled Procedures Name Priority Associated Diagnoses Date/Ti me COLONOSCOPY DIAGNOSTIC WITH/WITHOUT SPECIMEN BRUSH/WASH Encounter for screening for malignant neoplasm of colon 11/15/2024 12:00 PM CDT documented as of this encounter Visit Diagnoses Not on filedocumented in this encounter Additional Health Concerns Assessment Noted Time PHQ-9 Depression Total Score: 1 03/07/19 25 10:36 AM DIGITAL MARKETING ASSISTANT documented as of this encounter Care Teams Transport Manager Relationship Specialty Start Date End Date Bonnie Darby DO [address] [facility] [address] [place] [address] PCP - General FAMILY PRACTICE 11/09/23 10/02/24 Claudette Aguirre MD [address] [facility] [address] [place] [address] PCP - General FAMILY PRACTICE 10/03/24 Kenny Mcclain MD Three [facility]. [place] [address] [place] [address] Referring Physician VASCULAR SURGERY 08/24/24 Tk Lacey MD [address] [place] [address] Consulting Physician Internal Medicine Pulmonary Disease 08/24/24 documented as of this encounter
== END 2024-10-18 07:33 | disposition home or self-care (01) ==
PROVIDERS: PCP Family Medicine; Visit Provider Urology
DX: C80.1 Malignant (primary) neoplasm, unspecified (principal); N20.0 Calculus of kidney; K40.90 Unilateral inguinal hernia, without obstruction or gangrene, not specified as recurrent
CPT/HCPCS: 78815; A9596

== ENCOUNTER 2025-01-17 13:36 | Outpatient (CLI) | payer MEDICARE, SELFPAY ==
--- NOTE | ~2025-01-17 | DEXA_ITS ---
Bone Density Report Name: ASHVIN SAM Age: 70 Sex: Male Ethnicity: White Date of : 1955 Indication: parental hip fracture; cancer; Referring Provider: ARAMIS, COLT [place] Study: Bone densitometry was performed. Exam Date: January 17, 2025 Accession number: [id number] Bone Density: Region BMD T-score Z-score Classification AP Spine(L1-L4) 1.217 1.1 2.0 Normal Femoral Neck (Left) 0.856 -0.5 0.6 Normal Total Hip (Left) 1.109 0.5 1.1 Normal Femoral Neck (Right) 0.910 -0.1 1.0 Normal Total Hip (Right) 1.033 0.0 0.6 Normal Total Hip Mean 1.071 0.3 0.9 Normal World Health Organization criteria for BMD impression classify patients as: Normal (T-score at or above -1.0), Osteopenia (T-score between -1.0 and -2.5), or Osteoporosis (T-score at or below -2.5). 10-year Fracture Risk: FRAX not reported because: All T-scores for Spine Total, Hip Total, Femoral Neck at or above -1.0 Clinical Information Provided by Patient: Parent has had a hip fracture Smokes Has the following medical conditions: Cancer, prostate cancer Patient maximum height was 71 Drinks caffeinated beverages Impression: The patient has normal bone mass. The patient has risk factors, including: parental hip fracture, smoking. Discussion: BONE DENSITY IS ABOVE THE MINIMUM DESIRABLE LEVEL AT ALL SKELETAL SITES TESTED. This patient?s bone mineral density is above the minimum desirable level (T-score -1.0 or better) at all sites measured. The patient should follow a healthful lifestyle (good nutrition with adequate calcium and vitamin D, and appropriate weight-bearing exercise). Follow-Up: Consider repeating this study in 5 years or sooner if there is some new clinical indication. Reported by: MANN on 01/17/2025 1:58:00 PM. Reviewed, dictated and finalized at location A.
== END 2025-01-17 13:37 | disposition home or self-care (01) ==
LOC: MICIMG 13:38
PROVIDERS: PCP Nurse Practitioner; Visit Provider Nurse Practitioner
DX: Z79.818 Long term (current) use of other agents affecting estrogen receptors and estrogen levels (principal)
CPT/HCPCS: 77080